=== PATIENT | female | born 1955 | race American Indian/Alaskan Native ===

== ENCOUNTER 2020-08-01 16:24 | Emergency (ER) | payer MEDICAID ==
[2020-08-01] MEDS ORDERED: Sodium Chloride 0.9% 10 ML Syringe FLUSH PRN (17:19)
[2020-08-01] MEDS ORDERED: Labetalol 20 MG/4 ML Syringe IVPUSH ONE ×2 (17:43→18:35)
--- NOTE | 2020-08-01 18:18 | EDM.PDOC ---
<Eladia Welch - Last Filed: 08/01/20 18:21> ED HPI GENERAL MEDICAL PROBLEM - General Chief Complaint: Cardiovascular Problem Stated Complaint: HIGH BLOOD PRESSURE Time Seen by Provider: 08/01/20 16:50 Source of Information: Reports: Patient History Limitations: Reports: No Limitations - History of Present Illness INITIAL COMMENTS - FREE TEXT/NARRATIVE: PT ARRIVED FEELING NORMAL BUT STRESSED. sHE WAS FOUND TO HAVE A ELEVATED BP AT THE CLINIC AND FOR THAT REASON WAS SENT HERE. sHE WAS SEEING dR Oconnell AND us WAS DONE ON HER LEGS AND SHE WAS FOUND TO HAVE A MARKEDLY ELEVATED. bP. Onset: Gradual Duration: Hour(s): Location: Reports: Generalized, Other (PT DEVELOPED A KETO ACIDOSIS. ) Associated Symptoms: Reports: Confusion, Diaphoresis, Shortness of Breath, Weakness - Related Data Allergies Allergy/AdvReac Type Severity Reaction Status Date / Time lisinopril AdvReac Cough Verified 08/01/20 17:25 Home Meds: Home Meds Aspirin [Halfprin] 81 mg PO DAILY 08/01/20 [History] Cholecalciferol (Vitamin D3) [Vitamin D] 1,000 unit PO DAILY 08/01/20 [History] Cyanocobalamin (Vitamin B-12) [Vitamin B-12] 1 tab PO DAILY 08/01/20 [History] Hyoscyamine Sulfate [Levsin-Sl] 0.125 mg SL Q4H 08/01/20 [History] Insulin Glarg,Human.Rec.Analog [Lantus Solostar] 75 unit SUBCUT BEDTIME 08/01/20 [History] Losartan [Cozaar] 25 mg PO DAILY 08/01/20 [History] Omeprazole Magnesium [Prilosec Otc] 20 mg PO DAILY 08/01/20 [History] Simvastatin [Zocor] 40 mg PO BEDTIME 08/01/20 [History] metFORMIN [Glucophage] 1,000 mg PO BIDMEALS 08/01/20 [History] polyethylene glycoL 3350 [MiraLAX] 17 gm PO DAILY 08/01/20 [History] polyethylene glycoL 3350 [MiraLAX] 17 gm PO DAILY 08/01/20 [History] traMADol [Ultram] 50 mg PO Q8H PRN 08/01/20 [History] Past Medical History HEENT History: Reports: None Cardiovascular History: Reports: Hypertension Gastrointestinal History: Reports: Chronic Constipation, GERD Genitourinary History: Reports: None Musculoskeletal History: Reports: None Neurological History: Reports: TIA Psychiatric History: Reports: Anxiety, Depression Endocrine/Metabolic History: Reports: Diabetes, Type II, Obesity/BMI 30+ - Past Surgical History Head Surgeries/Procedures: Reports: None HEENT Surgical History: Reports: Cataract Surgery Cardiovascular Surgical History: Reports: None GI Surgical History: Reports: Cholecystectomy Endocrine Surgical History: Reports: None Neurological Surgical History: Reports: None Musculoskeletal Surgical History: Reports: Other (See Below) Other Musculoskeletal Surgeries/Procedures:: left arm Dermatological Surgical History: Reports: None Social & Family History - Tobacco Use Tobacco Use Status *Q: Never Tobacco User Second Hand Smoke Exposure: No - Caffeine Use Caffeine Use: Reports: Coffee, Tea - Recreational Drug Use Recreational Drug Use: No ED ROS GENERAL - Review of Systems Review Of Systems: See Below Constitutional: Reports: No Symptoms HEENT: Reports: No Symptoms Respiratory: Reports: Other ( RAPID RESP. ) Cardiovascular: Reports: No Symptoms Endocrine: Reports: Other ( PT HAS A VERY HIGH BP. ) GI/Abdominal: Reports: No Symptoms : Reports: No Symptoms Musculoskeletal: Reports: No Symptoms Skin: Reports: No Symptoms Neurological: Reports: Headache, Other (PT STATES THAT SHE IS VERY STRESSED TODAY AND THIS IS WHY HER BP IS ELEVATED. ) ED EXAM, GENERAL - Physical Exam Exam: See Below Free Text/Narrative:: PT ARRIVED AFTER BEING SENT TO THE [facility] FROM THE CLINIC BECAUSE HER BP IS MARKEDLY ELEVATED. Exam Limited By: No Limitations General Appearance: Alert, Other ( CONFUSED. ) Ears: Normal TMs Nose: Normal Inspection Throat/Mouth: Normal Inspection Head: Atraumatic Neck: Normal Inspection Respiratory/Chest: No Respiratory Distress Cardiovascular: Regular Rate, Rhythm, Tachycardia, Other ( BP IS MARKEDLY ELEVATED. ) GI/Abdominal: Soft, Non-Tender (Female) Exam: Deferred Rectal (Female) Exam: Deferred Back Exam: Normal Inspection Extremities: Normal Inspection Departure - Departure Disposition: Home, Self-Care 01 Clinical Impression: Elevated blood sugar, Hyponatremia HTN (hypertension) Qualifiers: Hypertension type: unspecified Qualified Code(s): I10 - Essential (primary) hypertension Referrals: PCP,None [Primary Care Provider] - Forms: ED Department Discharge Additional Instructions: Increase your home BP med(Losartan) to twice daily, next dose when you get home tonight. Resume all your other medications. See your doctor for follow up on your BP and sugar issues. Return as needed. Sepsis Event Note (ED) - Evaluation Sepsis Screening Result: No Definite Risk <Indra Guo - Last Filed: 08/01/20 19:14> Course - Vital Signs Last Recorded V/S: Last Vital Signs Temp 36.5 C 08/01/20 16:55 Pulse 84 08/01/20 18:10 Resp 20 08/01/20 18:10 BP 192/97 H 08/01/20 18:10 Pulse Ox 98 08/01/20 18:10 - Orders/Labs/Meds Orders: Active Orders 24 hr Category Date Time Status Dextrose 50% in Water Med 08/01/20 18:53 Active 50 ml IVPUSH ASDIRECTED PRN Glucagon,Human Recombinant [GlucaGen] Med 08/01/20 18:53 Active 1 mg IM ASDIRECTED PRN Sodium Chloride 0.9% [Normal Saline] 1,000 ml Med 08/01/20 19:00 Active IV ASDIRECTED Sodium Chloride 0.9% [Saline Flush] Med 08/01/20 17:19 Active 10 ml FLUSH ASDIRECTED PRN Saline Lock Insert [OM.PC] Routine Oth 08/01/20 17:19 Ordered Medication Orders Dextrose/Water (Dextrose 50% In Water) 50 ml IVPUSH ASDIRECTED PRN PRN Reason: Hypoglycemia Glucagon (Glucagen) 1 mg IM ASDIRECTED PRN PRN Reason: Hypoglycemia Sodium Chloride (Normal Saline) 1,000 mls @ 500 mls/hr IV ASDIRECTED KARINE Sodium Chloride (Saline Flush) 10 ml FLUSH ASDIRECTED PRN PRN Reason: Keep Vein Open Last Admin: 08/01/20 18:09 Dose: 10 ml Documented by: JAYNE Labs: Laboratory Tests 08/01/20 08/01/20 08/01/20 Range/Units 17:29 17:29 18:17 WBC 15.4 H (4.5-11.0) K/uL RBC 4.43 (3.30-5.50) M/uL Hgb 12.6 (12.0-15.0) g/dL Hct 36.8 (36.0-48.0) % MCV 83 (80-98) fL MCH 28 (27-31) pg MCHC 34 (32-36) % Plt Count 265 (150-400) K/uL Neut % (Auto) 81 H (36-66) % Lymph % (Auto) 8 L (24-44) % Larue % (Auto) 10 H (2-6) % Eos % (Auto) 1 L (2-4) % Baso % (Auto) 0 (0-1) % Sodium 123 L (140-148) mmol/L Potassium 4.6 (3.6-5.2) mmol/L Chloride 89 L (100-108) mmol/L Carbon Dioxide 25 (21-32) mmol/L Anion Gap 13.6 (5.0-14.0) mmol/L BUN 20 H (7-18) mg/dL Creatinine 1.2 H (0.6-1.0) mg/dL Est Cr Clr Drug Dosing 36.97 mL/min Estimated GFR (MDRD) 45 L (>60) Glucose 332 H (74-106) mg/dL Lactic Acid 1.7 (0.4-2.0) mmol/L Calcium 9.2 (8.5-10.1) mg/dL Total Bilirubin 0.4 (0.2-1.0) mg/dL AST 18 (15-37) U/L ALT 24 (12-78) U/L Alkaline Phosphatase 171 H (46-116) U/L Total Protein 7.7 (6.4-8.2) g/dL Albumin 3.3 L (3.4-5.0) g/dL Globulin 4.4 H (2.3-3.5) g/dL Albumin/Globulin Ratio 0.8 L (1.2-2.2) Urine Color (YELLOW) Urine Appearance (CLEAR) Urine pH (5.0-8.0) Ur Specific [place] (1.008-1.030) Urine Protein (NEGATIVE) mg/dL Urine Glucose (UA) (NEGATIVE) mg/dL Urine Ketones (NEGATIVE) mg/dL Urine Occult Blood (NEGATIVE) Urine Nitrite (NEGATIVE) Urine Bilirubin (NEGATIVE) Urine Urobilinogen (0.2-1.0) EU/dL Ur Leukocyte Esterase (NEGATIVE) Urine RBC (0-5) Urine WBC (0-5) Ur Epithelial Cells Amorphous Sediment Urine Bacteria Urine Mucus 08/01/20 Range/Units 18:45 WBC (4.5-11.0) K/uL RBC (3.30-5.50) M/uL Hgb (12.0-15.0) g/dL Hct (36.0-48.0) % MCV (80-98) fL MCH (27-31) pg MCHC (32-36) % Plt Count (150-400) K/uL Neut % (Auto) (36-66) % Lymph % (Auto) (24-44) % Larue % (Auto) (2-6) % Eos % (Auto) (2-4) % Baso % (Auto) (0-1) % Sodium (140-148) mmol/L Potassium (3.6-5.2) mmol/L Chloride (100-108) mmol/L Carbon Dioxide (21-32) mmol/L Anion Gap (5.0-14.0) mmol/L BUN (7-18) mg/dL Creatinine (0.6-1.0) mg/dL Est Cr Clr Drug Dosing mL/min Estimated GFR (MDRD) (>60) Glucose (74-106) mg/dL Lactic Acid (0.4-2.0) mmol/L Calcium (8.5-10.1) mg/dL Total Bilirubin (0.2-1.0) mg/dL AST (15-37) U/L ALT (12-78) U/L Alkaline Phosphatase (46-116) U/L Total Protein (6.4-8.2) g/dL Albumin (3.4-5.0) g/dL Globulin (2.3-3.5) g/dL Albumin/Globulin Ratio (1.2-2.2) Urine Color Yellow (YELLOW) Urine Appearance Clear (CLEAR) Urine pH 5.5 (5.0-8.0) Ur Specific [place] 1.010 (1.008-1.030) Urine Protein 30 H (NEGATIVE) mg/dL Urine Glucose (UA) 500 H (NEGATIVE) mg/dL Urine Ketones Negative (NEGATIVE) mg/dL Urine Occult Blood Trace-intact H (NEGATIVE) Urine Nitrite Negative (NEGATIVE) Urine Bilirubin Negative (NEGATIVE) Urine Urobilinogen 0.2 (0.2-1.0) EU/dL Ur Leukocyte Esterase Negative (NEGATIVE) Urine RBC 0-5 (0-5) Urine WBC 10-20 H (0-5) Ur Epithelial Cells Not seen Amorphous Sediment Not seen Urine Bacteria Not seen Urine Mucus Not seen Meds: Medications Generic Name Dose Route Start Last Admin Trade Name Freq PRN Reason Stop Dose Admin Dextrose/Water 50 ml 08/01/20 18:53 Dextrose 50% In Water IVPUSH ASDIRECTED PRN Hypoglycemia Glucagon 1 mg 08/01/20 18:53 Glucagen IM ASDIRECTED PRN Hypoglycemia Sodium Chloride 1,000 mls @ 500 mls/hr 08/01/20 19:00 Normal Saline IV ASDIRECTED KARINE Sodium Chloride 10 ml 08/01/20 17:19 08/01/20 18:09 Saline Flush FLUSH 10 ml ASDIRECTED PRN Administration Keep Vein Open Discontinued Medications Generic Name Dose Route Start Last Admin Trade Name Freq PRN Reason Stop Dose Admin Insulin Human Regular 14 unit 08/01/20 18:53 Humulin R SUBCUT 08/01/20 18:54 ONETIME ONE Labetalol HCl 20 mg 08/01/20 17:43 08/01/20 17:58 Normodyne IVPUSH 08/01/20 17:44 20 mg NOW ONE Administration Protocol Labetalol HCl 20 mg 08/01/20 18:35 08/01/20 18:40 Normodyne IVPUSH 08/01/20 18:36 20 mg NOW ONE Administration Protocol - Re-Assessments/Exams Free Text/Narrative Re-Assessment/Exam: 08/01/20 19:10 Is very frustrated with being here. 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 Is not able to answer many of our questions and all her records are in [place]. Wants to go home. Will increase her BP med to bid and have her F/U with her provider patty. Departure - Departure Time of Disposition: 19:12 Condition: Fair Sepsis Event Note (ED) - Focused Exam Vital Signs: Vital Signs Temp Pulse Resp BP Pulse Ox 08/01/20 18:10 84 20 192/97 H 98 08/01/20 16:55 36.5 C 111 H 17 228/114 H 100 08/01/20 16:47 36.5 C 111 H 17 228/114 H 100 - My Orders Last 24 Hours: My Active Orders 08/01/20 18:53 Dextrose 50% in Water 50 ml IVPUSH ASDIRECTED PRN Glucagon,Human Recombinant [GlucaGen] 1 mg IM ASDIRECTED PRN 08/01/20 19:00 Sodium Chloride 0.9% [Normal Saline] 1,000 ml IV ASDIRECTED - Assessment/Plan Last 24 Hours: My Active Orders 08/01/20 18:53 Dextrose 50% in Water 50 ml IVPUSH ASDIRECTED PRN Glucagon,Human Recombinant [GlucaGen] 1 mg IM ASDIRECTED PRN 08/01/20 19:00 Sodium Chloride 0.9% [Normal Saline] 1,000 ml IV ASDIRECTED
[2020-08-01] MEDS ORDERED: Insulin Regular, Human 100 Units/ML 3 ML Vial SUBCUT ONE ×2 (18:53→19:19)
[2020-08-01] MEDS ORDERED: Glucagon,Human Recombinant 1 MG Vial IM PRN ×2 (18:53→19:19)
[2020-08-01] MEDS ORDERED: 50% Dextrose in Water 50 ML Syringe IVPUSH PRN ×2 (18:53→19:19)
[2020-08-01] MEDS ORDERED: Sodium Chloride 0.9% 1,000 ML IV SCH (19:00)
== END 2020-08-01 20:00 | disposition home or self-care (01) ==
LOC: JP.ED 16:24
DX: E11.65 Type 2 diabetes mellitus with hyperglycemia (principal); E87.1 Hypo-osmolality and hyponatremia; I10 Essential (primary) hypertension; K21.9 Gastro-esophageal reflux disease without esophagitis; E66.9 Obesity, unspecified; Z88.8 Allergy status to other drugs, medicaments and biological substances; Z79.82 Long term (current) use of aspirin; Z86.73 Personal history of transient ischemic attack (TIA), and cerebral infarction without residual deficits; Z79.899 Other long term (current) drug therapy; Z79.4 Long term (current) use of insulin
CPT/HCPCS: 36415; 80053; 81001; 83605; 85025; 96374; 96376; 99283; J1815; J3490